=== PATIENT | male | born 1950 | race Caucasian/White ===

== ENCOUNTER 2024-01-30 13:10 | Observation (INO) ==
[2024-01-30 13:41] LABS: Basophils # (Auto) 0.04 K/mcL (0.00-0.30); Basophils % (Auto) 0.5 % (0.0-2.0); Eosinophils # (Auto) 0.33 K/mcL (0.00-0.70); Eosinophils % (Auto) 3.8 % (0.0-7.0); Hematocrit 43.8 % (40.1-51.0); Hemoglobin 14.4 g/dL (13.7-17.5); Lymphocytes # (Auto) 1.46 K/mcL (1.50-4.80); Lymphocytes % (Auto) 16.9 % (15.5-49.0); Mean Cell Volume 85.4 fL (80.0-100.0); Mean Corpuscular HGB Conc 32.9 g/dL (31.0-36.0); Mean Platelet Volume 8.8 fL (8.8-12.5); Monocytes # (Auto) 1.09 K/mcL (0.10-0.90); Monocytes % (Auto) 12.6 % (1.0-12.0); Neutrophils % (Auto) 66.1 % (38.0-78.0); Platelet Count 344 K/mcL (140-440); RBC 5.13 M/mcL (4.63-6.08); Red Cell Distribution Width 14.6 % (11.5-14.5); WBC 8.6 K/mcL (4.5-11.0)
[2024-01-30 14:08] LABS: ALT/SGPT 13 U/L (<40); AST/SGOT 22 U/L (<40); Albumin 4.3 gm/dL (3.2-5.2); Albumin/Globulin Ratio 1.2 (1.0-2.3); Alkaline Phosphatase 171 U/L (39-117); Bilirubin,Total 0.4 mg/dL (0.1-1.0); Blood Urea Nitrogen 19 mg/dL (8-23); Calcium 9.6 mg/dL (8.6-10.4); Carbon Dioxide 27 mmol/L (22-30); Chloride 96 mmol/L (96-108); Globulin 3.6 gm/dL (2.2-3.7); Glomerular Filtration Rate 75; Glucose 86 mg/dL (70-105); Potassium 4.4 mmol/L (3.3-5.1); Sodium 133 mmol/L (133-145)
[2024-01-30 14:45] LABS: INR 2.1 (0.9-1.1); Prothrombin Time 24.9 sec (11.9-14.5)
[2024-01-30] MEDS: 0.9 % SODIUM CHLORIDE 1,000 ML IV ONE (18:42)
[2024-01-30] MEDS ORDERED: ONDANSETRON 4 MG/2 ML VIAL IV PRN (19:43)
[2024-01-30] MEDS ORDERED: SENNOSIDES 1 TABLET PO PRN (19:43)
[2024-01-30] MEDS ORDERED: ACETAMINOPHEN 325 MG TABLET PO PRN (19:43)
[2024-01-30] MEDS ORDERED: MAGNESIUM HYDROXIDE 30 ML ORAL.SUSP PO PRN (19:43)
[2024-01-30] MEDS ORDERED: MAG HYDROX/AL HYDROX/SIMETH 30 ML ORAL.SUSP PO PRN (19:43)
[2024-01-30 20:21] LABS: Phosphorous 3.6 mg/dL (2.5-4.5)
[2024-01-31] MEDS: 0.9 % SODIUM CHLORIDE 10 ML SYRINGE IV SCH (00:24)
[2024-01-31] MEDS: 0.9 % SODIUM CHLORIDE 1,000 ML IV SCH (00:24)
[2024-01-31 07:14] LABS: Basophils # (Auto) 0.05 K/mcL (0.00-0.30); Basophils % (Auto) 0.6 % (0.0-2.0); Eosinophils % (Auto) 3.6 % (0.0-7.0); Hematocrit 40.8 % (40.1-51.0); Hemoglobin 13.2 g/dL (13.7-17.5); Lymphocytes # (Auto) 1.03 K/mcL (1.50-4.80); Lymphocytes % (Auto) 12.2 % (15.5-49.0); Mean Cell Volume 87.2 fL (80.0-100.0); Mean Corpuscular HGB Conc 32.4 g/dL (31.0-36.0); Monocytes # (Auto) 1.11 K/mcL (0.10-0.90); Monocytes % (Auto) 13.2 % (1.0-12.0); Neutrophils % (Auto) 70.2 % (38.0-78.0); Platelet Count 298 K/mcL (140-440); RBC 4.68 M/mcL (4.63-6.08); Red Cell Distribution Width 14.8 % (11.5-14.5); WBC 8.4 K/mcL (4.5-11.0)
[2024-01-31 07:35] LABS: ALT/SGPT 7 U/L (<40); AST/SGOT 19 U/L (<40); Albumin 3.8 gm/dL (3.2-5.2); Albumin/Globulin Ratio 1.2 (1.0-2.3); Alkaline Phosphatase 146 U/L (39-117); Bilirubin,Total 0.5 mg/dL (0.1-1.0); Blood Urea Nitrogen 17 mg/dL (8-23); Calcium 9.2 mg/dL (8.6-10.4); Carbon Dioxide 24 mmol/L (22-30); Chloride 101 mmol/L (96-108); Globulin 3.1 gm/dL (2.2-3.7); Glomerular Filtration Rate 85; Glucose 103 mg/dL (70-105); Phosphorous 3.7 mg/dL (2.5-4.5); Potassium 4.8 mmol/L (3.3-5.1); Sodium 137 mmol/L (133-145)
[2024-01-31 07:41] LABS: INR 2.3 (0.9-1.1); Prothrombin Time 26.5 sec (11.9-14.5)
[2024-01-31] MEDS: PANTOPRAZOLE 40 MG TABLET PO SCH (07:57)
[2024-01-31] MEDS ORDERED: NITROGLYCERIN 0.4 MG TAB.SUBL SL PRN (08:08)
[2024-01-31] MEDS ORDERED: ALBUTEROL SULFATE 60 PUFF INHALER INH PRN (08:08)
[2024-01-31] MEDS: OMEPRAZOLE 20 MG CAPSULE PO SCH (08:21)
[2024-01-31] MEDS: METOPROLOL SUCCINATE 50 MG TAB.XL.24H PO SCH (08:23)
[2024-01-31] MEDS: FLUoxetine HCL 20 MG CAPSULE PO SCH (08:23)
[2024-01-31] MEDS: LIDOCAINE 4% TOP PATCH TOPICAL SCH (09:45)
[2024-01-31] MEDS: PNEUMOCOCCAL 23-VAL P-SAC VAC 0.5 ML SYRINGE IM ONE (12:14)
[2024-01-31] MEDS ORDERED: WARFARIN 2 MG TABLET PO SCH (14:00)
[2024-01-31] MEDS ORDERED: SIMVASTATIN 10 MG TABLET PO SCH (21:00)
== END 2024-01-31 12:46 | disposition home health service (06) ==
LOC: ED 13:10 → MEDSUR 13:10
PROVIDERS: ADMIT Student in an Organized Health Care Education/Training Program; ATTEND Student in an Organized Health Care Education/Training Program